=== PATIENT | male | born 1940 | race Caucasian/White ===

== ENCOUNTER → 2016-12-13 | Day surgery (SDC) | payer MEDICARE ==
[~2016-12-13] MED LIST: 1-ME1LIQ OR; ADVA100A; ASPI81 PO; CLOP75 PO; DEXAMETHASONE SOD PHOS 4 MG/ML VIAL ONE; EPINEPHrine HCL (1:1000) 1 MG/ML VIAL ONE; FISH1000 PO; LACTATED RINGER'S 1000 ML INJ 1,000 ML ONE; LISI-366 PO; MIDAZOLAM HCL 2 MG/2 ML VIAL ONE; MOXIFLOXACIN 0.5% OPHT SOLN 3 ML BTL ONE; NIAC500 PO; ONDANSETRON HCL 4 MG/2 ML VIAL IV PUSH ONE; PHENYLEPHRINE HCL 10% OPTH SOLN 5 ML BTL ONE; PROPOFOL 200 MG/20 ML AMP IV ONE; ROSU40 PO; SODIUM CHLORIDE 0.9% INJ 10 ML ONE; STOO100T PO; TAB-TAB PO; TOBRAMYCIN/DEXAMETHASONE OPTH OINT 3.5 GM TUBE ONE; TOPR25TA2 PO; TYLE500T PO; ceFAZolin INJ 1,000 MG VIAL ONE; prednisoLONE ACETATE 1% OPHT SUSP 5 ML BTL ONE
--- NOTE | 2016-12-16 08:08 | MP ---
cc: TRENT PAYNE MD DATE OF SURGERY 12/14/2016 PREOPERATIVE DIAGNOSIS Full-thickness macular hole left eye. POSTOPERATIVE DIAGNOSIS Full-thickness macular hole left eye. PROCEDURE Pars vitrectomy, removal of epiretinal membrane/internal limiting membrane, air-fluid exchange, endolaser, insertion of 18% SF6 gas left eye. ANESTHESIA Dr. Galdamez, general BLOOD LOSS Less than 1 cc. COMPLICATIONS None INDICATIONS FOR PROCEDURE This is a delightful patient who presented with a full-thickness macular hole with significantly decreased visual acuity in his left eye. The patient elected for surgical correction understanding some visual distortion may likely be made. PROCEDURE NOTE After informed consent was obtained, the patient was brought to the operating room and general anesthesia was established. The left eye was prepped and draped in a sterile fashion with Betadine in the conjunctival fornix. A three port pars plana vitrectomy was established with self-retaining infusion cannula. Core vitreous was evacuated. Vitreous traction of the peripheral retina was relieved. The ILM/ERM complex was highlighted with ICG and removed with Rafa ILM forceps. Scleral depression examination revealed some peripheral retinal thinning which was treated with endolaser. Air-fluid exchange was carried out and macular hole noted to close. 18% SF6 gas was instilled. Trocars removed and sclerotomies closed. Subconjunctival injection of Ancef and dexamethasone were given. The eye was patched with Tobramycin eye appointment. The patient was brought to the recovery room in stable condition and will continue to be followed up with [facility] for his postoperative care. MD CAMDEN Coyle/RAMOS /7:14 PM /7:56 AM
== END | disposition home or self-care (01) ==
LOC: ESDC 08:59
PROVIDERS: ATTEND Ophthalmology
DX: H35.342 Macular cyst, hole, or pseudohole, left eye (principal)
CPT/HCPCS: 00145; 67043; J0171; J0690; J1100; J2250; J2405; J3010; J7120